=== PATIENT | female | born 1975 | race Caucasian/White ===

== ENCOUNTER 2023-02-06 09:17 | Outpatient (OUT) | payer MEDICAID, SELFPAY ==
--- NOTE | 2023-02-06 09:22 | MR_ITS ---
[address] [address] Patient Name: KRISTINA ARAYA MRN: [facility]:[id number] date: 1975 Sex: F Assigned Patient Location: MRI Current Patient Location: MRI Accession/Order Number: [id number] Exam Date: 02/06/2023 09:41 Report Date: 02/06/2023 13:18 At the request of: FINN GUEVARA Procedure: MR cervical spine wo con EXAMINATION: MR cervical spine wo con HISTORY: Degenerative Disc Disease Cervical Spine, Hyperreflexia COMPARISON: No relevant comparison available. TECHNIQUE: A variety of imaging planes and parameters were utilized for visualization of suspected pathology without and/or with intravenous Dotarem contrast based on examination type. FINDINGS: CRANIOCERVICAL AREA: Normal foramen magnum with no Chiari malformation. PARASPINAL AREA: Normal with no visible mass. BONES: No fracture, pars defect, or osseous lesion. CORD: Normal caliber, contour, and signal intensity. CERVICAL DISC LEVELS: C2-C3: Early degenerative disc disease is present without focal protrusion or neural impingement. C3-C4: Mild foramen narrowing bilaterally secondary to mild diffuse disc bulging. No significant central canal narrowing. C4-C5: Mild foramen narrowing bilaterally secondary to mild diffuse disc bulging. No significant central canal narrowing. C5-C6: Mild central canal and moderate bilateral foramen narrowing. Mild diffuse disc bulging without disc at reduction. Vertebral joint spurring and mild degenerative facet arthropathy. C6-C7: Mild central canal narrowing. Mild right, moderate left foramen narrowing. Mild diffuse disc bulging without disc height reduction. Uncovertebral joint spurring and mild degenerative facet arthropathy. C7-T1:. No significant disc/facet abnormality, spinal stenosis, or foraminal stenosis. IMPRESSION: 1. No appreciable acute abnormality. 2. Multilevel mild foramen and central canal narrowing secondary to degenerative disc disease and mild facet arthropathy. Borderline moderate left foramen narrowing at C6-7. Electronically authenticated by: MARVIN COSTELLO Date: 02/06/2023 13:18
--- NOTE | 2023-02-06 09:22 | MR_ITS ---
The [address] [address] Patient Name: KRISTINA ARAYA MRN: [facility]:[id number] date: 1975 Sex: F Assigned Patient Location: MRI Current Patient Location: MRI Accession/Order Number: [id number] Exam Date: 02/06/2023 10:10 Report Date: 02/06/2023 13:00 At the request of: FINN GUEVARA Procedure: MR lumbar spine wo con EXAMINATION: MR lumbar spine wo con HISTORY: Leg Pain M79.606, Low Back Pain M54.50 COMPARISON: No relevant comparison available. TECHNIQUE: A variety of imaging planes and parameters were utilized for visualization of suspected pathology. FINDINGS: For the purposes of numbering, sagittal T2 image # 8 extends from the T11 vertebral body superiorly to the S3 level inferiorly. PARASPINAL AREA: Normal with no visible mass. BONES: CORD/CAUDA EQUINA: Normal caliber, contour, and signal intensity. DISC LEVELS: 12-L1: No significant disc/facet abnormality, spinal stenosis, or foraminal stenosis. L1-L2: No significant disc/facet abnormality, spinal stenosis, or foraminal stenosis. L2-L3: No significant disc/facet abnormality, spinal stenosis, or foraminal stenosis. L3-L4: No significant disc/facet abnormality, spinal stenosis, or foraminal stenosis. L4-L5: No significant disc/facet abnormality, spinal stenosis, or foraminal stenosis. L5-S1: No significant disc/facet abnormality, spinal stenosis, or foraminal stenosis. IMPRESSION: 1. No appreciable acute abnormality or significant degenerative changes of the lumbar spine. Electronically authenticated by: MARVIN COSTELLO Date: 02/06/2023 13:00
== END 2023-02-06 09:18 | disposition home or self-care (01) ==
LOC: MRI 09:18
PROVIDERS: PCP Family Medicine; Visit Provider Nurse Practitioner Adult Health
DX: M50.30 Other cervical disc degeneration, unspecified cervical region (principal); M79.621 Pain in right upper arm; R29.2 Abnormal reflex; M79.606 Pain in leg, unspecified; M54.50 Low back pain, unspecified; M47.812 Spondylosis without myelopathy or radiculopathy, cervical region; M48.02 Spinal stenosis, cervical region; M99.71 Connective tissue and disc stenosis of intervertebral foramina of cervical region
CPT/HCPCS: 72141; 72148

== ENCOUNTER 2023-03-21 16:16 | Emergency (ER) | payer MEDICAID, SELFPAY ==
[2023-03-21 16:26] VITALS: BP 120/86; PULSE 73; RESP 18; TEMP 36.8; O2SAT 99; BMI 35.0
--- NOTE | 2023-03-21 16:53 | CT_ITS ---
[address] [address] Patient Name: KRISTINA ARAYA MRN: [id number] date: 1975 Sex: F Assigned Patient Location: ER Current Patient Location: ER Accession/Order Number: [id number] Exam Date: 03/21/2023 17:40 Report Date: 03/21/2023 18:20 At the request of: LEYLA PEREZ Procedure: CT abdomen pelvis wo con EXAMINATION: CT abdomen pelvis wo con, 03/21/2023 5:40 PM EDT HISTORY: Right abd and flank pain COMPARISON: 04/06/2021 TECHNIQUE: CT scan of the abdomen and pelvis was performed without IV contrast. CT dose reduction technique was used, including Automated Exposure Control. FINDINGS: LOWER CHEST: The visualized lungs are clear. LIVER: There is hepatomegaly. GALLBLADDER AND BILIARY SYSTEM: Status post cholecystectomy. SPLEEN: Unremarkable. PANCREAS: Unremarkable. ADRENAL GLANDS: Unremarkable. KIDNEYS AND URETERS: Punctate nonobstructing calculus in the lower pole the left kidney. No ureteral calculus or hydronephrosis. BLADDER: Unremarkable. GASTROINTESTINAL TRACT: No evidence of bowel obstruction or colitis. Normal appendix. VASCULATURE: The abdominal aorta is normal in caliber. RETROPERITONEUM: No lymphadenopathy. PERITONEUM/MESENTERY: No abdominal ascites. No free air. PELVIS: No pelvic ascites or lymphadenopathy. BODY WALL: Small fat-containing umbilical hernia. Small supraumbilical fat-containing ventral hernia. BONES: No acute abnormality. CT/CT abdomen pelvis wo con IMPRESSION: 1. Punctate nonobstructing calculus in the lower pole the left kidney. 2. Small fat-containing supraumbilical ventral hernia. Small fat-containing umbilical hernia. 3. Hepatomegaly. Electronically authenticated by: JOSE DELGADO Date: 03/21/2023 18:20
--- NOTE | 2023-03-21 16:57 | ED.ABDPAIN1 ---
HPI - Abdominal Pain General Chief Complaint: Abdominal Pain Stated Complaint: Upper Abdominal Pain Time Seen by Provider: 03/21/23 16:22 Source: patient Mode of arrival: walk-in Limitations: no limitations History of Present Illness HPI narrative: right sided abdominal pain started a couple of days ago. She said the pain was initially intermittent and then has become constant. She said that the pain radiates into the right flank. Pain is worse with movement of the torso. She denied any urinary symptoms such as urgency or frequency. No fever or chills. Prior history of kidney stones and surgery for cholecystectomy and for bowel obstruction. She denied chance of Related Data Previous Rx's Medication Instructions Recorded hyoscyamine sulfate 0.125 mg 0.125 mg PO Q6H PRN abdominal pain 03/21/23 sublingual tablet (Levsin/SL) #20 tabs Allergies Allergy/AdvReac Type Severity Reaction Status Date / Time azithromycin Allergy Severe Verified 03/21/23 16:28 doxycycline Allergy Severe Verified 03/21/23 16:28 Exam Narrative Exam Narrative: Nurses notes and vital signs reviewed and patient is not hypoxic. afebrile General: Well-appearing and in no apparent distress. Skin: Warm, dry, no pallor noted. No rash. Head: Normocephalic, atraumatic. Neck: Supple, non-tender. Eye: Pupils are equal, round and EOMI. No scleral icterus. Ears, Nose, Mouth, and Throat: Oral mucosa is moist Cardiovascular: Regular Rate and Rhythm without murmur, gallop or rub. Respiratory: No accessory muscle use or respiratory distress. Lungs are clear to auscultation, no wheezing, rales or rhonchi Back: No CVA tenderness Musculoskeletal: normal ROM, no calf or popliteal tenderness, no lower extremity edema/swelling GI: Abdomen is soft, non-distended. Normal bowel sounds. No masses appreciated. Right sided tenderness to palpation. No rebound, guarding, or rigidity noted. Neurological: A&O x4. No cranial nerve dysfunction observed. No truncal ataxia. Moves all extremities. Sensation intact. Psychiatric: Cooperative and interactive. Normal mood and affect. Constitutional Vital Signs, click to edit/add: Last Vital Signs Temp 98.3 F 03/21/23 16:26 Pulse 73 03/21/23 16:26 Resp 18 03/21/23 16:26 BP 120/86 03/21/23 16:26 Pulse Ox 99 03/21/23 16:26 O2 Del Method Room Air 03/21/23 16:26 Course Vital Signs Vital signs: Vital Signs Temperature 98.3 F 03/21/23 16:26 Pulse Rate 73 03/21/23 16:26 Respiratory Rate 18 03/21/23 16:26 Blood Pressure 120/86 03/21/23 16:26 Pulse Oximetry 99 03/21/23 16:26 Oxygen Delivery Method Room Air 03/21/23 16:26 Temperature 98.3 F 03/21/23 16:26 Pulse Rate 73 03/21/23 16:26 Respiratory Rate 18 03/21/23 16:26 Blood Pressure 120/86 03/21/23 16:26 Pulse Oximetry 99 03/21/23 16:26 Oxygen Delivery Method Room Air 03/21/23 16:26 MDM - Abdominal Pain MDM Narrative Medical decision making narrative: peripheral IV established and blood drawn and sent for testing. The patient was ordered to receive IV Toradol for pain. She was ordered to undergo CT scanning of the abdomen pelvis without contrast. Her workup was unremarkable. She had a slightly elevated WBC but her UA and CT were negative. She was given NS IVF and IV Toradol in the ED. She felt better. We discussed the negative results. I recommended clear liquid and soft bland diet and prescribed Levsin for the pain. Lab Data Attestation: I reviewed the patient's lab results. Labs: Lab Results 03/21/23 Range/Units 17:00 WBC 11.7 H (4.0-11.0) 10^3/uL RBC 4.91 (4.20-5.40) 10^6/uL Hgb 15.2 (12.0-16.0) g/dL Hct 44.7 (36.0-48.0) % MCV 91.0 (81.0-99.0) fL MCH 31.0 (26.7-34.0) pg MCHC 34.0 (29.9-35.2) g/dL RDW 13.0 (11.0-15.0) % Plt Count 334 (150-450) 10^3/uL MPV 9.3 L (9.5-13.5) fL Neut % (Auto) 64.3 (43.0-75.0) % Lymph % (Auto) 26.2 (20.5-60.0) % [place] % (Auto) 6.7 (1.7-12.0) % Eos % (Auto) 2.0 (0.9-7.0) % Baso % (Auto) 0.3 (0.2-2.0) % Neut # (Auto) 7.5 H (1.4-6.5) 10^3/uL Lymph # (Auto) 3.1 (1.2-3.8) 10^3/uL [place] # (Auto) 0.8 (0.3-0.8) 10^3/uL Eos # (Auto) 0.2 (0.0-0.7) 10^3/uL Baso # (Auto) 0.0 (0.0-0.1) 10^3/uL Abs Immat Gran (auto) 0.06 H (0.00-0.03) 10^3/uL Imm/Tot Granulo (auto) 0.5 (0.0-0.5) % Sodium 137 (136-145) mmol/L Potassium 3.5 (3.5-5.1) mmol/L Chloride 101 (98-107) mmol/L Carbon Dioxide 27.2 (21.0-32.0) mmol/L Anion Gap 12.3 BUN 11.0 (7.0-18.0) mg/dL Creatinine 0.86 (0.55-1.02) mg/dL Est GFR ( Amer) >60 (>=60) Est GFR (Non-Af Amer) >60 (>=60) BUN/Creatinine Ratio 12.8 Glucose 89 (74-106) mg/dL Calcium 9.4 (8.5-10.1) mg/dL Total Bilirubin 0.2 (0.2-1.0) mg/dL AST 12 L (15-37) U/L ALT 30 (14-59) U/L Alkaline Phosphatase 71 (46-116) U/L Total Protein 7.9 (6.4-8.2) g/dL Albumin 4.3 (3.4-5.0) g/dL Globulin 3.6 g/dL Albumin/Globulin Ratio 1.2 Urine Color Lt. yellow (YELLOW) Urine Clarity Clear (CLEAR) Urine pH 6.5 (5.0-9.0) Ur Specific [place] 1.010 (1.005-1.025) Urine Protein Negative (NEG/TRACE) mg/dL Urine Glucose (UA) Negative (NEGATIVE) mg/dL Urine Ketones Negative (NEGATIVE) mg/dL Urine Occult Blood Negative (NEGATIVE) Urine Nitrite Negative (NEGATIVE) Urine Bilirubin Negative (NEGATIVE) Urine Urobilinogen 0.2 (0.2-1.0) EU/dL Ur Leukocyte Esterase Negative (NEGATIVE) Imaging Data CT scan - abdomen: Radiologist's impression: Patient Name: KRISTINA ARAYA MRN: [facility]:[id number] date: 1975 Sex: F Assigned Patient Location: ER Current Patient Location: ER Accession/Order Number: [id number] Exam Date: 03/21/2023 17:40 Report Date: 03/21/2023 18:20 At the request of: LEYLA PEREZ Procedure: CT abdomen pelvis wo con EXAMINATION: CT abdomen pelvis wo con, 03/21/2023 5:40 PM EDT HISTORY: Right abd and flank pain COMPARISON: 04/06/2021 TECHNIQUE: CT scan of the abdomen and pelvis was performed without IV contrast. CT dose reduction technique was used, including Automated Exposure Control. FINDINGS: LOWER CHEST: The visualized lungs are clear. LIVER: There is hepatomegaly. GALLBLADDER AND BILIARY SYSTEM: Status post cholecystectomy. SPLEEN: Unremarkable. PANCREAS: Unremarkable. ADRENAL GLANDS: Unremarkable. KIDNEYS AND URETERS: Punctate nonobstructing calculus in the lower pole the left kidney. No ureteral calculus or hydronephrosis. BLADDER: Unremarkable. GASTROINTESTINAL TRACT: No evidence of bowel obstruction or colitis. Normal appendix. VASCULATURE: The abdominal aorta is normal in caliber. RETROPERITONEUM: No lymphadenopathy. PERITONEUM/MESENTERY: No abdominal ascites. No free air. PELVIS: No pelvic ascites or lymphadenopathy. BODY WALL: Small fat-containing umbilical hernia. Small supraumbilical fat-containing ventral hernia. BONES: No acute abnormality. IMPRESSION: 1. Punctate nonobstructing calculus in the lower pole the left kidney. 2. Small fat-containing supraumbilical ventral hernia. Small fat-containing umbilical hernia. 3. Hepatomegaly. Electronically authenticated by: JOSE DELGADO Date: 03/21/2023 18:20 Discharge Plan Discharge Chief Complaint: Abdominal Pain Clinical Impression: Abdominal pain Patient Disposition: Home, Self-Care Time of Disposition Decision: 18:57 Prescriptions / Home Meds: New hyoscyamine sulfate [Levsin/SL] 0.125 mg tablet, sublingual 0.125 mg PO Q6H PRN (Reason: abdominal pain) Qty: 20 0RF Instructions: Abdominal Pain (ED) Stand Alone Forms: Portal Instructions
[2023-03-21 17:21] LABS: Basophils Percent Auto 0.3 % (0.2-2.0); Eosinophils Absolute Auto 0.2 10^3/uL (0.0-0.7); Hematocrit 44.7 % (36.0-48.0); Hemoglobin 15.2 g/dL (12.0-16.0); Immature Granulocytes Abs Auto 0.06 10^3/uL (0.00-0.03); Immature Granulocytes Pct Auto 0.5 % (0.0-0.5); Lymphocytes Absolute Auto 3.1 10^3/uL (1.2-3.8); Lymphocytes Percent Auto 26.2 % (20.5-60.0); Mean Platelet Volume 9.3 fL (9.5-13.5); Monocytes Absolute Auto 0.8 10^3/uL (0.3-0.8); Monocytes Percent Auto 6.7 % (1.7-12.0); Neutrophils Absolute Auto 7.5 10^3/uL (1.4-6.5); Neutrophils Percent Auto 64.3 % (43.0-75.0); Platelet Count 334 10^3/uL (150-450); Red Blood Count 4.91 10^6/uL (4.20-5.40); White Blood Count 11.7 10^3/uL (4.0-11.0)
[2023-03-21 17:22] LABS: Bilirubin Urine NEGATIVE (NEGATIVE); Blood Urine NEGATIVE (NEGATIVE); Clarity Urine CLEAR (CLEAR); Color Urine LT. YELLOW (YELLOW); Glucose Urine UA NEGATIVE (NEGATIVE); Ketones Urine NEGATIVE (NEGATIVE); Leukocyte Esterase Urine NEGATIVE (NEGATIVE); Nitrite Urine NEGATIVE (NEGATIVE); Protein Urine NEGATIVE (NEG/TRACE); Urobilinogen Urine 0.2 EU/dL (0.2-1.0); pH Urine 6.5 (5.0-9.0)
[2023-03-21 17:25] LABS: Urine Microscopic Indicated NO
[2023-03-21 17:37] LABS: Alanine Aminotransferase 30 U/L (14-59); Albumin Globulin Ratio 1.2; Albumin Level 4.3 g/dL (3.4-5.0); Alkaline Phosphatase 71 U/L (46-116); Anion Gap 12.3; Aspartate Amino Transferase 12 U/L (15-37); BUN Creatinine Ratio 12.8; Bilirubin Total 0.2 mg/dL (0.2-1.0); Calcium 9.4 mg/dL (8.5-10.1); Carbon Dioxide 27.2 mmol/L (21.0-32.0); Chloride 101 mmol/L (98-107); Estimated GFR (African America >60 (>=60); Estimated GFR (Non-African Ame >60 (>=60); Globulin 3.6 g/dL; Glucose 89 mg/dL (74-106); Potassium 3.5 mmol/L (3.5-5.1); Sodium 137 mmol/L (136-145); Total Protein 7.9 g/dL (6.4-8.2)
[2023-03-21] MEDS: KETOROLAC TROMETHAMINE 30 MG/ML VIAL IVP (17:49)
== END 2023-03-21 19:14 | disposition home or self-care (01) ==
PROVIDERS: Emergency Provider Emergency Medicine
DX: R10.9 Unspecified abdominal pain (principal); Z87.442 Personal history of urinary calculi
CPT/HCPCS: 36415; 74176; 80053; 81003; 85025; 96374; 99285

== ENCOUNTER 2024-02-25 15:14 | Emergency (ER) | payer SELFPAY ==
[2024-02-25] VITALS (20 sets, daily range): BP systolic 100–123; BP diastolic 63–85; PULSE 66–97; TEMP 37; O2SAT 92–99; BMI 34.0
--- NOTE | 2024-02-25 15:44 | ECG_ITS ---
The [facility] Test Date: 2024-02-25 Pat Name: KRISTINA ARAYA Department: Room: - Gender: Female [employer]: : 1975 Requested By: [id number] Order Number: [id number] Reading MD: GRACIA PAIZ Measurements Intervals [place] Rate: 87 P: 54 LA: 162 QRS: 60 QRSD: 86 T: 235 QT: 368 QTc: 413 Interpretive Statements 1100 Sinus rhythm [address] depression 4564 [place] abnormality, possible lateral ischemia 4664 [place] abnormality, possible inferior ischemia 9150 abnormal ECG Compared to ECG 04/17/2022 12:21:50 ST (T wave) deviation now present Possible ischemia now present Electronically Signed On 02-26-2024 13:34:19 EDT by GRACIA PAIZ
--- NOTE | 2024-02-25 15:44 | XR_ITS ---
The [address] [address] Patient Name: KRISTINA ARAYA MRN: [id number] date: 1975 Sex: F Assigned Patient Location: ER Current Patient Location: ED.MAIN Accession/Order Number: [id number] Exam Date: 02/25/2024 16:50 Report Date: 02/25/2024 18:03 At the request of: JOSE MAYORGA Procedure: XR chest 1V XR chest 1V 02/25/2024 4:50 PM EDT CLINICAL INDICATION: Chest pain COMPARISON: 04/17/2022 TECHNIQUE: Portable semiupright AP view of the chest. FINDINGS: There are no tubes or implants noted. The cardiomediastinal silhouette and pulmonary vasculature are within normal limits. Mild interstitial prominence. The lungs are clear. No pneumothorax or pleural effusion. Osseous structures and soft tissues are within normal limits. XR/XR chest 1V IMPRESSION: Findings which may represent an infectious or inflammatory bronchiolitis. No evidence of lobar pneumonia. Electronically authenticated by: LISA PARRA Date: 02/25/2024 18:03
[2024-02-25 15:51] LABS: Basophils Percent Auto 0.4 % (0.2-2.0); Eosinophils Absolute Auto 0.2 10^3/uL (0.0-0.7); Hematocrit 40.5 % (36.0-48.0); Hemoglobin 14.2 g/dL (12.0-16.0); Immature Granulocytes Abs Auto 0.03 10^3/uL (0.00-0.03); Immature Granulocytes Pct Auto 0.3 % (0.0-0.5); Lymphocytes Absolute Auto 3.4 10^3/uL (1.2-3.8); Lymphocytes Percent Auto 34.4 % (20.5-60.0); Mean Corpuscular HGB Conc 35.1 g/dL (29.9-35.2); Mean Corpuscular Hemoglobin 32.1 pg (26.7-34.0); Mean Corpuscular Volume 91.4 fL (81.0-99.0); Mean Platelet Volume 9.5 fL (9.5-13.5); Monocytes Absolute Auto 0.5 10^3/uL (0.3-0.8); Monocytes Percent Auto 5.5 % (1.7-12.0); Neutrophils Absolute Auto 5.6 10^3/uL (1.4-6.5); Neutrophils Percent Auto 57.4 % (43.0-75.0); Platelet Count 324 10^3/uL (150-450); Red Blood Count 4.43 10^6/uL (4.20-5.40); Red Cell Distribution Width 12.9 % (11.0-15.0); White Blood Count 9.8 10^3/uL (4.0-11.0)
[2024-02-25] MEDS: ASPIRIN 81 MG TAB.CHEW 324 MG PO (16:00)
[2024-02-25 16:06] LABS: Alanine Aminotransferase 22 U/L (14-59); Albumin Globulin Ratio 1.3; Albumin Level 3.9 g/dL (3.4-5.0); Alkaline Phosphatase 64 U/L (46-116); Anion Gap 17.2; Aspartate Amino Transferase 18 U/L (15-37); BUN Creatinine Ratio 17.1; Bilirubin Total 0.6 mg/dL (0.2-1.0); Calcium 9.2 mg/dL (8.5-10.1); Carbon Dioxide 25.5 mmol/L (21.0-32.0); Chloride 103 mmol/L (98-107); Estimated GFR (African America >60 (>=60); Estimated GFR (Non-African Ame >60 (>=60); Globulin 3.1 g/dL; Glucose 98 mg/dL (74-106); Magnesium 1.9 mg/dL (1.8-2.4); Potassium 3.7 mmol/L (3.5-5.1); Sodium 142 mmol/L (136-145); Troponin I High Sensitivity 4.3 pg/mL (4.0-51.3)
[2024-02-25 17:37] LABS: Troponin I High Sensitivity <4.0 pg/mL (4.0-51.3)
--- NOTE | 2024-02-25 18:01 | ED.CHESTPAI1 ---
HPI - Chest Pain General Chief Complaint: Chest Pain Stated Complaint: Chest Pain, Palpitations Time Seen by Provider: 02/25/24 15:39 Source: patient Mode of arrival: walk-in Limitations: no limitations History of Present Illness HPI narrative: 48-year-old female presents to the emergency department with her son with complaint of chest pain. Onset this morning while at work. Works in a hotel, cleaning rooms. Pain went across the chest, described as shooting. In addition complains of palpitations. Describes as heart skipping beats. The palpitations have been ongoing problem for the problem patient. Feels like they may be increasing in frequency. + History of cigarette smoking, family history of cardiac. Denies shortness of breath, nausea, diaphoresis, abdominal symptoms, history of diabetes, hypertension, hyperlipidemia Quality:?as above Severity:?moderate Timing:?as above, constant Context: Normal setting and activity? Modifying factors:?none Associated symptoms: as above Related Data Home Medications ?Medication ?Instructions ?Recorded ?Confirmed albuterol sulfate 90 mcg/actuation 2 puff inhalation PRN shortness of 02/25/24 aerosol inhaler breath or wheezing duloxetine 60 mg capsule,delayed 60 mg PO DAILY 02/25/24 02/25/24 release (Cymbalta) lithium carbonate 300 mg capsule 300 mg PO BID 02/25/24 02/25/24 Previous Rx's ?Medication ?Instructions ?Recorded albuterol sulfate 90 mcg/actuation 1 - 2 inh inhalation Q6H PRN 02/25/24 aerosol inhaler shortness of breath or wheezing #8.5 grams Allergies Allergy/AdvReac Type Severity Reaction Status Date / Time azithromycin Allergy Severe Verified 03/21/23 16:28 doxycycline Allergy Severe Verified 03/21/23 16:28 Review of Systems ROS Constitutional Denies: fever, chills or fatigue Ears, nose, mouth, and throat Denies: neck pain Cardiovascular Reports: chest pain and palpitations; Denies: edema or shortness of breath with exertion Respiratory Denies: shortness of breath, cough or chest congestion Gastrointestinal Denies: abdominal pain or nausea Musculoskeletal Denies: back pain, neck pain or extremity pain Neurological Denies: headache or dizziness Exam Constitutional Vital Signs, click to edit/add: Last Vital Signs Temp 98.6 F 02/25/24 15:30 Pulse 66 02/25/24 18:20 Resp 18 02/25/24 18:20 BP 101/69 02/25/24 18:00 Pulse Ox 97 02/25/24 18:20 O2 Del Method Room Air 02/25/24 15:30 Common normals: no apparent distress, oriented x3 and well nourished HENMT Common normals: normocephalic and head/scalp atraumatic Head and scalp: normocephalic and atraumatic Eye Common normals: conjunctivae normal Conjunctiva: conjunctiva(e) normal Neck & C-Spine Common normals: supple and no JVD Chest Common normals: palpation of chest normal Respiratory Common normals: normal respiratory effort and clear to auscultation bilaterally Effort & inspection: able to speak in complete sentences Auscultation: clear to auscultation bilaterally Cardio Common normals: no JVD, regular rate, regular rhythm and no murmurs Rate: regular rate Rhythm: regular rhythm GI Common normals: soft to palpation and non-tender Palpation: soft Extremity Common normals: no pedal edema Neuro Common normals: no focal motor deficits, no sensory deficits noted and gait normal; not oriented x3 Psych Common normals: mental status grossly normal, thought process normal and cooperative Thought process: normal thought process Course Reevaluation(s) Reevaluation #1: no CP. Discussed with patient results, plan, and disposition. She is agreeable. Time: 18:01 Vital Signs Vital signs: Vital Signs Pulse Rate 97 H 02/25/24 15:25 Respiratory Rate 11 L 02/25/24 15:25 Temperature 98.6 F 02/25/24 15:30 Pulse Rate 66 02/25/24 18:20 Respiratory Rate 18 02/25/24 18:20 Blood Pressure 101/69 02/25/24 18:00 Pulse Oximetry 97 02/25/24 18:20 Oxygen Delivery Method Room Air 02/25/24 15:30 MDM - Chest Pain MDM Narrative Medical decision making narrative: This is a pleasant 48-year-old female who presents to the emergency department with chief complaint of chest pain. Pain described as shooting going from right side to left side of her chest. Has had palpitations as well. Describes as heart skipping. The palpitations have been an ongoing problem for the patient. Denies any shortness of breath, nausea, diaphoresis, dizziness, prior cardiac problems. She is a cigarette smoker. States she does have some family history of cardiac problems. Denies hypertension, hyperlipidemia, diabetes. EKG reveals no acute or concerning changes. Labs reveal no leukocytosis, anemia, thrombocytopenia, electrolyte imbalance, renal impairment. LFTs, lipase unremarkable. Glucose 98. High-sensitivity troponin, serial, were negative x 2. Chest x-ray imaging, per radiologist reveals findings which may represent an infectious or inflammatory bronchiolitis. No evidence of lobar pneumonia. Favor nonspecific chest pain, palpitations ACS less likely based on EKG and cardiac biomarkers Pneumonia less likely based on imaging PE less likely based on negative PERC score Disposition ? The patient was discharged. Plan: Patient will be discharged to home. Condition at time of disposition: stable Prescription for albuterol sent to her pharmacy. Advised to follow up with primary and cardiac provider. Referral information placed on discharge paperwork. Explained to patient she may need Holter monitor for the palpitations advised to return for any worsening and/or development of new, concerning signs or symptoms PLEASE NOTE: Portions of the medical record may have been produced using electronic refrigerator glazier and may contain errors with respect to translation of words which may not have been identified prior to finalization of the chart. Lab Data Labs: Lab Results 02/25/24 02/25/24 Range/Units 15:34 17:11 WBC 9.8 (4.0-11.0) 10^3/uL RBC 4.43 (4.20-5.40) 10^6/uL Hgb 14.2 (12.0-16.0) g/dL Hct 40.5 (36.0-48.0) % MCV 91.4 (81.0-99.0) fL MCH 32.1 (26.7-34.0) pg MCHC 35.1 (29.9-35.2) g/dL RDW 12.9 (11.0-15.0) % Plt Count 324 (150-450) 10^3/uL MPV 9.5 (9.5-13.5) fL Neut % (Auto) 57.4 (43.0-75.0) % Lymph % (Auto) 34.4 (20.5-60.0) % [place] % (Auto) 5.5 (1.7-12.0) % Eos % (Auto) 2.0 (0.9-7.0) % Baso % (Auto) 0.4 (0.2-2.0) % Neut # (Auto) 5.6 (1.4-6.5) 10^3/uL Lymph # (Auto) 3.4 (1.2-3.8) 10^3/uL [place] # (Auto) 0.5 (0.3-0.8) 10^3/uL Eos # (Auto) 0.2 (0.0-0.7) 10^3/uL Baso # (Auto) 0.0 (0.0-0.1) 10^3/uL Abs Immat Gran (auto) 0.03 (0.00-0.03) 10^3/uL Imm/Tot Granulo (auto) 0.3 (0.0-0.5) % Sodium 142 (136-145) mmol/L Potassium 3.7 (3.5-5.1) mmol/L Chloride 103 (98-107) mmol/L Carbon Dioxide 25.5 (21.0-32.0) mmol/L Anion Gap 17.2 BUN 12.0 (7.0-18.0) mg/dL Creatinine 0.70 (0.55-1.02) mg/dL Est GFR ( Amer) >60 (>=60) Est GFR (Non-Af Amer) >60 (>=60) BUN/Creatinine Ratio 17.1 Glucose 98 (74-106) mg/dL Calcium 9.2 (8.5-10.1) mg/dL Magnesium 1.9 (1.8-2.4) mg/dL Total Bilirubin 0.6 (0.2-1.0) mg/dL AST 18 (15-37) U/L ALT 22 (14-59) U/L Alkaline Phosphatase 64 (46-116) U/L Troponin I High Sens 4.3 <4.0 L (4.0-51.3) pg/mL Total Protein 7.0 (6.4-8.2) g/dL Albumin 3.9 (3.4-5.0) g/dL Globulin 3.1 g/dL Albumin/Globulin Ratio 1.3 Lipase 30.0 (16.0-77.0) U/L Imaging Data Chest x-ray: Radiologist's impression: ITS Impressions Chest X-Ray 02/25/24 15:44 IMPRESSION: Findings which may represent an infectious or inflammatory bronchiolitis. No evidence of lobar pneumonia. Electronically authenticated by: LISA PARRA Date: 02/25/2024 18:03 Discharge Plan Discharge Stand Alone Forms: Portal Instructions Chief Complaint: Chest Pain Clinical Impression: Palpitations Chest pain Qualifiers: Chest pain type: unspecified Qualified Code(s): R07.9 - Chest pain, unspecified Patient Disposition: Home, Self-Care Time of Disposition Decision: 18:02 Condition: Good Mode of Transportation: Private Vehicle Prescriptions / Home Meds: New albuterol sulfate 90 mcg/actuation HFA aerosol inhaler 1 - 2 inh inhalation Q6H PRN (Reason: shortness of breath or wheezing) Qty: 8.5 0RF No Action duloxetine [Cymbalta] 60 mg capsule,delayed release(DR/EC) 60 mg PO DAILY albuterol sulfate 90 mcg/actuation HFA aerosol inhaler 2 puff INHALATION PRN (Reason: shortness of breath or wheezing) lithium carbonate 300 mg capsule 300 mg PO BID Print Language: Burkinan Instructions: Chest Pain (ED) Additional Instructions: Call for follow up on your chest pain, palpitations. You may need a Holter monitor Referrals: Tam Ruvalcaba MD [Physician] - 1 week Teresa Sexton MD [Physician] - 02/28/24 Discharge Date/Time: 02/25/24 18:37
== END 2024-02-25 18:37 | disposition home or self-care (01) ==
PROVIDERS: Physician Assistant; Emergency Provider Emergency Medicine
DX: R07.9 Chest pain, unspecified (principal); R00.2 Palpitations; F17.210 Nicotine dependence, cigarettes, uncomplicated
CPT/HCPCS: 36415; 71045; 80053; 83690; 83735; 84484; 85025; 93005; 99285

== ENCOUNTER 2024-07-20 13:44 | Outpatient (OUT) | payer BC, SELFPAY ==
--- NOTE | 2024-07-20 14:11 | CA_ITS ---
Patient Name: KRISTINA KING MR#: [id number] : 1975 Exam Date: 07/20/2024 Ordering Doctor: FAUSTO CARLOS M.D. ECHOCARDIOGRAM REPORT PROCEDURE: CA ECHO DOPPLER COMPLETE INDICATIONS: Palpitations COMPARISON: None. DESCRIPTION: COMPLETE ECHOCARDIOGRAM Real-time transthoracic echocardiography with 2D, M-mode, spectral and color flow Doppler performed. QUALITY: Technical quality was good. LEFT VENTRICLE: Normal chamber size. Normal left ventricular wall thickness. Global left ventricular systolic function is normal. LV EF: Estimated left ventricular ejection fraction is 65-70 %. DIASTOLIC: Normal diastolic function. ATRIAL SEPTUM: LEFT ATRIUM: Normal chamber size. RIGHT ATRIUM: Normal chamber size. RIGHT VENTRICLE: Normal chamber size. Normal right ventricular systolic function. TRICUSPID VALVE: Normal mobility and thickness. No stenosis with trivial regurgitation. No evidence of pulmonary hypertension. RVSP 27 mmHg MITRAL VALVE: Normal mobility and thickness. No evidence of mitral valve stenosis. There is no mitral annular calcification. Trivial mitral regurgitation. AORTIC VALVE: Normal trileaflet appearance. No visible sclerosis. Normal leaflet mobility. No evidence of aortic valve stenosis. No aortic regurgitation. AORTIC ROOT: Normal diameter and appearance. PULMONIC VALVE: Normal thickness and mobility. No stenosis. Trivial regurgitation. PERICARDIUM: No evidence of pericardial effusion. IVC: Collapses with inspirations. Normal size. PLEURA: CONCLUSION: 1. Normal left ventricular size and systolic function. LVEF is estimated at 65 to 70%. 2. Normal right ventricular size and systolic function. 3. Normal diastolic function. 4. No significant valvular dysfunction. 5. Normal right-sided pressures. Adult Echocardiography Procedure Report Left Ventricle LVEDD (3.7 - 5.6 cm): 4.11 cm LVESD (2.2 - 4.0 cm): 2.93 cm LVIVS thickness (0.6 - 1.2 cm): 0.87 cm LVPW thickness (0.5 - 1.0 cm): 0.85 cm e': 0.14 m/s E - e': 5.45 LVOT Max Gradient: 4.72 mm[Hg] LVOT Area (cm2): 1.09 m/s Peak Velocity (LVOT): 1.09 m/s Mean Velocity (LVOT): 0.70 m/s LVOT Diameter 1.71 cm Left Ventricular Ejection Fraction: 65-70% Left Atrium LA Volume Index (2D A2C): 28.78 ml/m2 Left Atrium Systolic Dimension: 3.41 cm Mitral Valve MV E to A Ratio: 1.02, 1.30 Mitral Valve A-Wave Peak Velocity: 0.68 m/s Mitral Valve E-Wave Peak Velocity: 0.79 m/s Right Ventricle RV Internal Diastolic Dimension: 2.95 cm Aorta AO Root Diam: 3.04 cm Ascending Ao Diam: 2.84 cm Aortic Valve AoV Area (Peak Chi): 2.15 cm2, 2.15 cm2 AoV Area (VTI): 1.88 cm2, 1.88 cm2 Peak Velocity(Antegrade Flow): 1.15 m/s Peak Gradient(Antegrade Flow): 5.31 mm[Hg] Mean Velocity(Antegrade Flow): 0.83 m/s Mean Gradient(Antegrade Flow): 3.09 mm[Hg] Velocity Time Integral: 26.28 cm Tricuspid Valve Peak Velocity (Regurgitant Flow): 2.00 m/s, 2.47 m/s, 2.10 m/s Pulmonic Valve Mean Gradient: 2.87 mm[Hg], 2.38 mm[Hg], 2.27 mm[Hg] Mean Velocity: 0.82 m/s, 0.73 m/s, 0.71 m/s Peak Velocity: 1.00 m/s Peak Gradient: 4.50 mm[Hg], 3.97 mm[Hg], 3.47 mm[Hg] Right Atrium Right Atrium Systolic Pressure: 26.81 ml, 26.81 ml Dictated by: Tushar Man M.D. on 07/20/2024 at 18:07 Approved by: Tushar Man M.D. on 07/20/2024 at 18:09
== END 2024-07-20 13:45 | disposition home or self-care (01) ==
LOC: CARD 13:46
PROVIDERS: PCP Nurse Practitioner Family; Visit Provider Internal Medicine Cardiovascular Disease
DX: R00.2 Palpitations (principal); R06.02 Shortness of breath
CPT/HCPCS: 93306